=== PATIENT | female | born 2000 | race Caucasian/White ===

== ENCOUNTER → 2025-07-20 | Outpatient (CLI) | payer OTHER, SELFPAY ==
--- NOTE | 2025-07-20 16:21 | MRI_ITS ---
PROCEDURE: LOWER EXT JOINT ONLY (ROUTINE) 07/20/2025 REASON FOR EXAM: RULE OUT LATERAL MENISCUS TEAR TECHNIQUE: Procedure Code: MRILEJ Modality: MR Procedure: LOWER EXT JOINT ONLY (ROUTINE) Multiplanar and multisequence images were obtained without IV contrast administration. COMPARISON: none FINDINGS: The body and posterior horn of the medial meniscus shows branching high signal reaching its meniscocapsular attachment and interrupting its superior articular surfaces. Intact lateral meniscus. No obvious meniscal tears. Intact anterior and posterior cruciate ligament. Intact collateral and retinacular ligaments. Intact patellar and quadriceps tendons. Minimal knee joint effusion with no synovial hypertrophy. Multilocular Leon's cyst. Distal femoral shaft intramedullary area of high STIR signal, possibly red marrow reconversion. Proximal tibial bone island noted. No marrow infiltrative lesions. Normal MR appearance of the tasha-articular musculature with preserved inter- muscular fat planes. MRI/Lower Ext Joint Only (Routine) IMPRESSION: Torn body and posterior horn of the medial meniscus. Minimal knee joint effusion with multilocular Leon's cyst. Reading [facility]
== END | disposition home or self-care (01) ==
LOC: MRI 07-23 09:37
PROVIDERS: Referring Provider Orthopaedic Surgery Sports Medicine; Visit Provider Orthopaedic Surgery Sports Medicine
DX: M25.562 Pain in left knee (principal)
CPT/HCPCS: 73721